=== PATIENT | female | born 1995 ===

== ENCOUNTER 2017-12-16 18:21 | Emergency (ER) | payer OTHER ==
[2017-12-16] MEDS ORDERED: Sodium Chloride 0.9% 1,000 ML IV STA (19:44)
--- NOTE | 2017-12-16 20:07 | C.PDOC ---
History Of Present Illness 22 year old female presents to the ED c/o RLQ pain associated with fever for the past few weeks. Patient had a done in [facility] 2 years ago, she was seen at this Hospital for evaluation of a tender mass. Patient reports she was not given any medications at that time. However patient states pain returned and worsened this time. Patient states she feels "little ball" in the RLQ abdomen that is swollen and warm. Patient took Advil at 14:00. Patient denies nausea, vomit, diarrhea, dysuria, hematuria, vaginal bleeding, vaginal discharge. Time Seen by Provider: 12/16/17 19:28 Chief Complaint (Nursing): Abdominal Pain History Per: Patient History/Exam Limitations: no limitations Onset/Duration Of Symptoms: Days Current Symptoms Are (Timing): Still Present Location Of Pain/Discomfort: RLQ Radiation Of Pain To:: None Quality Of Discomfort: "Pain" Associated Symptoms: Fever. denies: Nausea, Vomiting, Diarrhea, Urinary Symptoms Alleviating Factors: None Last Bowel Movement: Today Recent travel outside of the [place]: No Additional History Per: Patient Abnormal Vaginal Bleeding: No Past Medical History Reviewed: Historical Data, Nursing Documentation, Vital Signs Vital Signs: Last Vital Signs Temp 99.5 F 12/16/17 18:38 Pulse 87 12/16/17 18:38 Resp 20 12/16/17 18:38 BP 109/75 12/16/17 18:38 Pulse Ox 100 12/16/17 18:38 - Medical History PMH: No Chronic Diseases Surgical History: Family History: States: Unknown Family Hx - Social History Hx Alcohol Use: No Hx Substance Use: No Review Of Systems Except As Marked, All Systems Reviewed And Found Negative. Constitutional: Positive for: Fever Gastrointestinal: Positive for: Abdominal Pain Physical Exam - Physical Exam Additional Physical Exam Comments: Constitutional: No acute distress. Head: Normocephalic. Atraumatic. Eyes: PERRL. ENT: Moist mucous membranes. Neck: Supple. Cardiovascular: Regular rate. Radial pulse 2+ bilaterally. Chest: No tenderness. Respiratory: Clear to auscultation bilaterally. GI: Soft. RLQ firm mass tender to palpation Back: No CVA tenderness. Musculoskeletal: No tenderness or swelling of extremities. Skin: No rash. Neurologic: Alert, no focal deficit. ED Course And Treatment - Laboratory Results Result Diagrams: 12/16/17 20:00 12/16/17 20:00 O2 Sat by Pulse Oximetry: 100 (ON RA) Pulse Ox Interpretation: Normal Medical Decision Making Medical Decision Making: Plan: * CT abd/pelvis * Labs * IV fluids * Toradol 30 mg IVP * Urine culture * UA CT abd/pelvis IMPRESSION: 1. 5 x 3 mm calculus is noted in the proximal right ureter producing mild hydroureteronephrosis. 2. 2.5 x 2.0 cm irregular nodule located in the deep subcutaneous layers of the anterior pelvic wall as above. Consider biopsy. 3. Enteritis. Infectious and chronic inflammatory etiologies are considered. Electronically signed on Dec 16, 2017 10:22:44 PM EDT by: Julito Angela M.D., JANY Certified By [facility] [facility] Fellowship Trained MRI and CT Specialist Patient in no distress. Follow up urology and clinic, informed of recommendation for biopsy of this mass. Return to ED for worsening pain, fever, dyspnea, intractible vomiting. Disposition - Disposition Referrals: Jose Ordonez MD [Staff Provider] - Disposition: HOME/ ROUTINE Disposition Time: 22:31 Condition: STABLE Prescriptions: RX: Acetaminophen [Tylenol 325mg tab] 2 tab PO Q4H #30 tab Famotidine [Pepcid] 1 tab PO BID #14 tab Ibuprofen [Motrin] 600 mg PO Q6 #25 tab levoFLOXacin [Levaquin] 1 tab PO DAILY #10 tab Metronidazole [Flagyl] 500 mg PO Q8 #30 tab Ondansetron ODT [Zofran ODT] 4 mg PO Q8 #12 odt oxyCODONE/Acetaminophen [Percocet 5/325 mg Tab] 1 tab PO Q6 #10 tab Tamsulosin [Flomax] 0.4 mg PO DAILY #5 cap Instructions: Kidney Stones (DC) Forms: [employer] (K[place]z), Work Excuse - Clinical Impression Clinical Impression: Kidney stone, Enteritis - Scribe Statement The provider has reviewed the documentation as recorded by the Saudibkris Pineda All medical record entries made by the Saudibe were at my direction and personally dictated by me. I have reviewed the chart and agree that the record accurately reflects my personal performance of the history, physical exam, medical decision making, and the department course for this patient. I have also personally directed, reviewed, and agree with the discharge instructions and disposition.
[2017-12-16 20:09] LABS: BASO % 0.6 % (0.0-2.0); EOS # 0.2 K/uL (0.0-0.7); EOS % 2.1 % (0.0-4.0); LYMPH # 2.9 K/uL (1.0-4.3); LYMPH % 33.3 % (20.0-40.0); MEAN CELL VOLUME 90.8 fL (81.0-99.0); MEAN CORPUSCULAR HGB CONC 34.1 g/dL (33.0-37.0); MEAN PLATELET VOLUME 7.7 fL (7.2-11.7); MONO # 0.7 K/uL (0.0-0.8); MONO % 7.7 % (0.0-10.0); NEUT % 56.3 % (50.0-75.0); NRBC % 0.1 % (0.0-2.0); RBC 4.86 Mil/uL (3.80-5.20); RED CELL DISTRIBUTION WIDTH 13.3 % (11.5-14.5); WHITE BLOOD COUNT 8.8 K/uL (4.8-10.8)
[2017-12-16 20:11] LABS: SQUAMOUS EPITHIAL 2 /hpf (0-5); URINE BACTERIA FEW (<OCC); URINE BILIRUBIN NEGATIVE (NEGATIVE); URINE BLOOD 3+ (NEGATIVE); URINE CLARITY Clear (Clear); URINE COLOR Yellow (YELLOW); URINE GLUCOSE (UA) NORMAL (Normal); URINE LEUKOCYTE ESTERASE 1+ Leu/uL (Negative); URINE PROTEIN 1+ mg/dL (NEGATIVE)
[2017-12-16 20:20] LABS: ALB/GLOB RATIO 1.4 (1.0-2.1); ALBUMIN 4.3 g/dL (3.5-5.0); ALT/SGPT 15 U/L (9-52); AST/SGOT 18 U/L (14-36); BLOOD UREA NITROGEN 11 mg/dL (7-17); CALCIUM 9.4 mg/dl (8.6-10.4); GFR NON-AFRICAN AMERICAN > 60
[2017-12-16] MEDS ORDERED: Iodixanol 320 MG/ML 100 ML BOTTLE IV ONE (21:04)
[2017-12-16 23:18] VITALS: BP 95/61; PULSE 65; RESP 14; TEMP 98.4
--- NOTE | 2017-12-17 10:29 | CT ---
Date of service: 12/16/2017 PROCEDURE: CT Abdomen and Pelvis with intravenous contrast HISTORY: Right lower quadrant pain. Mass in that area. COMPARISON: None. TECHNIQUE: Multiple contiguous axial images were performed through the abdomen and pelvis with the use of intravenous contrast. Subsequently, sagittal reformatted images were obtained. Radiation dose: Total exam DLP = 347.56 mGy-cm. This CT exam was performed using one or more of the following dose reduction techniques: Automated exposure control, adjustment of the mA and/or kV according to patient size, and/or use of iterative reconstruction technique. FINDINGS: LOWER THORAX: Atelectasis at the lung bases. LIVER: Unremarkable. No gross lesion or ductal dilatation. GALLBLADDER AND BILE DUCTS: Unremarkable. PANCREAS: Unremarkable. No gross lesion or ductal dilatation. SPLEEN: Unremarkable. ADRENALS: Unremarkable. No mass. KIDNEYS AND URETERS: Mild right renal hydroureteronephrosis with 6.8 millimeter calculus in the proximal right ureter. VASCULATURE: Unremarkable. No aortic aneurysm. No aortic atherosclerotic calcification or mural plaque present. BOWEL: Unremarkable. No obstruction. No gross mural thickening. APPENDIX: Unremarkable. Normal appendix. PERITONEUM: Unremarkable. No free fluid. No free air. LYMPH NODES: Unremarkable. No enlarged lymph nodes. BLADDER: Unremarkable. REPRODUCTIVE: Heterogeneous uterus and bilateral adnexa. BONES: No acute fracture. OTHER FINDINGS: Within the subcutaneous soft tissues of the right lower pelvis, anterior to the abdominal fascia, on series 3, image 128, there is an enhancing 2.1 x 2.0 centimeter rounded focus demonstrating a Hounsfield unit attenuation of 57, indeterminate. This is of uncertain clinical etiology and may represent a soft tissue abscess versus nodule however underlying lesion cannot be excluded. Clinical correlation. Correlation with soft tissue biopsy may be helpful if clinically indicated. IMPRESSION: Within the subcutaneous soft tissues of the right lower pelvis, anterior to the abdominal fascia, on series 3, image 128, there is an enhancing 2.1 x 2.0 centimeter rounded focus demonstrating a Hounsfield unit attenuation of 57, indeterminate. This is of uncertain clinical etiology and may represent a soft tissue abscess versus nodule however underlying lesion cannot be excluded. Clinical correlation. Correlation with soft tissue biopsy may be helpful if clinically indicated. Mild right renal hydroureteronephrosis with 6.8 millimeter calculus in the proximal right ureter. A preliminary report was generated at 10:22 p.m. on 12/16/[address] Julito Angela from [facility] rad.
[2017-12-17 10:33] VITALS: O2SAT 100
== END 2017-12-16 23:35 | disposition home or self-care (01) ==
LOC: C.ER 18:21
DX: N20.0 Calculus of kidney (principal); K52.9 Noninfective gastroenteritis and colitis, unspecified
CPT/HCPCS: 74177; 80053; 81001; 85025; 87086; 87181; 96361; 96374; 99285; J1885; J7030; Q9967